=== PATIENT | female | born 1990 | race Hispanic/Latino ===

== ENCOUNTER 2023-02-09 19:32 | Emergency (ER) | payer SELFPAY ==
[2023-02-09 21:20] LABS: Pregnancy Test - Urine (BHCG) Negative (Negative); Pregu Control Background? CLEAR/WHITE (CLR/WHITE); Pregu Control Bar Appear? YES (CONTROL BAR)
== END 2023-02-09 22:02 | disposition home or self-care (01) ==
LOC: CSHERS 19:32
DX: T78.40XA Allergy, unspecified, initial encounter (principal)
CPT/HCPCS: 71045; 81025; 93005

== ENCOUNTER 2025-02-20 13:10 | Emergency (ER) | payer SELFPAY ==
[2025-02-20] MEDS ORDERED: Pantoprazole 40 MG VIAL ONE (13:32)
[2025-02-20] MEDS ORDERED: Ondansetron PF 4 MG/2 ML Vial ONE (13:32)
[2025-02-20 13:51] LABS: #Basophils 0.05 10x3/uL (0.0-0.2); #Eosinophils 0.33 10x3/uL (0.0-0.5); #Monocytes 0.59 10x3/uL (0.0-1.1); #Neutrophils 6.12 10x3/uL (1.5-8.4); %Basophils 0.5 % (0.0-2.0); %Eosinophils 3.4 % (0.0-6.0); %Lymphocytes 26.0 % (18.0-47.0); %Monocytes 6.1 % (0.0-10.0); %Neutrophils 63.8 % (40.0-75.0); Hematocrit 37.0 % (34.9-44.5); Hemoglobin 12.5 g/dL (12.0-15.5); Mean Corpuscular Hemoglobin 28.5 pg (27.0-33.0); Mean Corpuscular Volume 84.5 fL (81.6-98.3); Platelet Count 239 10x3/uL (150-450); Red Blood Cell (RBC) Count 4.38 10x6/uL (3.90-5.03); White Blood Cell (WBC) Count 9.61 10x3/uL (3.5-10.5)
[2025-02-20 14:01] LABS: BHCG - Serum Negative (NEGATIVE); Pregs Control Background? CLEAR/WHITE (CLR/WHITE); Pregs Control Bar Appear? YES (CONTROL BAR)
[2025-02-20 14:11] LABS: Troponin I Less than 0.010 ng/mL (< 0.028)
[2025-02-20 14:33] LABS: ALT (SGPT) 13 U/L (Less than 34); AST (SGOT) 17 U/L (11-34); Albumin 4.1 g/dL (3.1-4.5); Alkaline Phosphatase 41 U/L (40-110); Anion Gap 12 mmol/L (10-20); BUN (Urea Nitrogen) 15 mg/dL (7.0-18.7); Bilirubin, Total 0.6 mg/dL (0.3-1.2); Calc. Creatinine Clearance 0 mL/min (70-130); Calcium 9.0 mg/dL (7.8-10.44); Carbon Dioxide 24 mmol/L (22-29); Chloride 105 mmol/L (98-107); Globulin 3.0 g/dL (2.4-3.5); Glucose 100 mg/dL (70-105); Lipase 50 U/L (8-78); Potassium 4.0 mmol/L (3.5-5.1); Sodium 137 mmol/L (136-145)
[2025-02-20] MEDS ORDERED: Ketorolac Tromethamine 30 MG (1 mL) VIAL ONE (14:59)
[2025-02-20] MEDS ORDERED: Dexamethasone 10 MG/ML VIAL ONE (15:09)
[2025-02-20] MEDS ORDERED: Iopamidol 370 76% 100 ML VIAL ONE (15:46)
== END 2025-02-20 16:42 | disposition home or self-care (01) ==
LOC: CSHERS 13:10
DX: R07.81 Pleurodynia (principal); R05.1 Acute cough
CPT/HCPCS: 71045; 71275; 80053; 83690; 84484; 84703; 85025; 85379; 93005; 96374; 96375; J1100; J1885; J2270; J2405; J2470; Q9967